=== PATIENT | female | born 2000 | race American Indian/Alaskan Native ===

== ENCOUNTER 2020-08-23 18:26 | Emergency (ER) | payer SELFPAY ==
[2020-08-23 19:31] VITALS: BP 125/69
--- NOTE | 2020-08-23 19:47 | Emergency Department Report ---
Chief Complaint: Skin Rash Stated Complaint: RASH Time Seen by Provider: 08/23/20 19:32 - HPI History of Present Illness: 20-year-old immunocompetent female patient presents to emergency department with complaints of a pruritic rash starting 1 month ago. Patient has a lesion on her left shoulder and another lesion on her face. No new foods, medications, or environmental/occupational exposures. No one else in the household has a similar rash. She has not taken any medication for this problem. Denies fever, chills, abnormal bleeding/bruising, vomiting, diarrhea, neck stiffness, mental status changes, seizure, syncope. Denies all other complaints at this time. - ROS Review of Systems: GENERAL: Negative for fever. CARDIOVASCULAR: Negative for chest pain. PULMONARY: Negative for shortness of breath. GASTROINTESTINAL: Negative for abdominal pain. MUSCULOSKELETAL: Negative for back pain. NEUROLOGICAL: Negative for headache. INTEGUMENTARY: Positive for rash. - Exam Vital Signs: Vital Signs 08/23/20 19:30 Temperature 98.4 F Pulse Rate 79 Respiratory 16 Rate Blood Pressure 125/69 O2 Sat by Pulse 100 Oximetry Physical Exam: General: Awake, appropriately interactive, no acute distress. Neck: Supple. Full range of motion intact. Cardiovascular: Normal peripheral perfusion. Pulmonary: No respiratory distress. Patient is speaking normally without use of accessory muscles. Skin: Two round macular scaled pruritic lesions (anterior left shoulder and above left eyebrow) without evidence of surrounding cellulitis. Neurological: No facial asymmetry. Speech is clear. Follows commands. Patient is alert and oriented. Musculoskeletal: Moves all four extremities spontaneously with normal range of motion. Psych: Cooperative. Appropriate mood and affect. MSE screening note: Focused history and physical exam performed. Due to findings the following was ordered: ED Medical Decision Making - Medical Decision Making The patient is alert and well appearing. There are no petichiae or purpura, no mucous membrane lesions, and no bullae. History and exam findings suggestive of tinea corporis. Patient will be treated with topical Clotrimazole. The patient is without findings concerning for worrisome systemic illness requiring further treatment, additional testing, admission, or specialist consultation at this time. Additional testing is not indicated at this time, but should be considered if symptoms worsen or recur. Discussed findings, presumptive diagnosis, need for follow-up and specific signs/symptoms that should prompt immediate return to the emergency department. Instructions were explained in detail to the patient in ad dition to giving written discharge information. Patient expressed understanding and was given the opportunity to ask questions, all of which were satisfactorily answered prior to discharge home. BILLING/CODING: This patient encounter does not represent a certified medical emergency. ED Disposition for MSE Clinical Impression: Tinea corporis Disposition: DC-01 TO HOME OR SELFCARE Is pt being admited?: No Does the pt Need Aspirin: No Condition: Stable Instructions: Body Ringworm Additional Instructions: Use Clotrimazole as directed. Take Benadryl at nighttime as needed for itching. Follow-up with primary care provider this week. Call tomorrow to schedule an appointment. See referral information below. Return to the emergency department immediately for new or worsening symptoms. Prescriptions: Clotrimazole [Clotrimazole AF] 30 gm TP BID 28 Days #1 cream..g. Referrals: SHO JOSÉ MD [Staff Physician] - 3-5 Days Time of Disposition: 19:47
== END 2020-08-23 21:20 | disposition home or self-care (01) ==
LOC: ED 18:26
DX: B35.4 Tinea corporis (principal)
CPT/HCPCS: 99282